=== PATIENT | female | born 1980 | race Two or more races ===

== ENCOUNTER 2020-10-18 09:40 | Emergency (ER) | payer SELFPAY ==
[~2020-10-18] VITALS: Ht 157.5 cm; Wt 63.6 kg
[2020-10-18 11:29] LABS: BILIRUBIN,URINE NEGATIVE (NEG); CLARITY,URINE CLEAR; COLOR,URINE YELLOW; NITRITE,URINE NEGATIVE (NEG); PH,URINE 5.5 (<5.0-8.0); PROTEIN,URINE NEGATIVE (NEG-TRACE); UROBILINOGEN,URINE 0.2 mg/dL (0.2 mg/dL)
[2020-10-18 11:40] LABS: BACTERIA,URINE FEW /HPF (0-FEW); RBC,URINE 0 /HPF (0-2)
[2020-10-18] MEDS ORDERED: IV NORMAL SALINE 1000ML BAG 1,000 ML IV ONE (11:45)
[2020-10-18] MEDS ORDERED: ONDANSETRON PF 4 MG/2 ML VIAL. IV ONE (11:45)
[2020-10-18 11:58] LABS: BASO % 1 % (0-3); EOS % 1 % (0-3); HEMATOCRIT 34.1 % (36.0-47.0); LYMPH # 1.6 x10^3/uL (1.0-4.8); LYMPH % 40 % (24-48); MEAN CORPUSCULAR HEMOGLOBIN 24 pg (25-35); MEAN CORPUSCULAR HGB CONC 32 g/dL (31-37); MEAN CORPUSCULAR VOLUME 74 fL (79-100); MONO # 0.4 x10^3/uL (0.0-1.1); MONO % 11 % (0-9); NEUT # 1.9 x10^3/uL (1.8-7.7); NEUT % 47 % (31-73); PLATELET COUNT 291 x10^3/uL (140-400); RED BLOOD COUNT 4.61 x10^6/uL (3.50-5.40); RED CELL DISTRIBUTION WIDTH 15.9 % (11.5-14.5); WHITE BLOOD COUNT 4.1 x10^3/uL (4.0-11.0)
[2020-10-18] MEDS ORDERED: IOHEXOL 300 MG/ML 100ML VIAL. IV ONE (12:00)
[2020-10-18 12:10] LABS: CALCIUM 8.8 mg/dL (8.5-10.1); CREATININE 0.8 mg/dL (0.6-1.0); GFR 80.3; POTASSIUM 4.3 mmol/L (3.5-5.1)
[2020-10-18] MEDS ORDERED: CONTRAST GIVEN. MC PRN (12:15)
[2020-10-18 12:16] LABS: ALBUMIN 3.7 g/dL (3.4-5.0); ALBUMIN/GLOBULIN RATIO 1.1 (1.0-1.7); MAGNESIUM 2.3 mg/dL (1.8-2.4); TOTAL BILIRUBIN 1.1 mg/dL (0.2-1.0); TOTAL PROTEIN 7.1 g/dL (6.4-8.2)
--- NOTE | 2020-10-18 12:52 | RAD ---
INDICATION: Reason: R flank pain / Spl. Instructions: IV omni 300 75 mls / History: . COMPARISON: April 2019 TECHNIQUE: Axial CT images obtained through the abdomen and pelvis with contrast.. One or more of the following individualized dose reduction techniques were utilized for this examinat ion: 1. Automated exposure control; 2. Adjustment of the mA and/or kV according to patient size; 3 . Use of iterative reconstruction technique. FINDINGS: Abdominal aorta is not aneurysmal. No intrahepatic bile duct dilation. The liver is mildly low density. Nonspecific but can be seen with fatty infiltration. No peripancreatic fluid collection. Spleen unremarkable. Postoperative changes to the stomach. No hydronephrosis. Prominent vessels in the periuterine region bilaterally. Urinary bladder is partially distended. Appendix does not appear inflamed. No dilated loops of bowel to suggest obstruction. Degenerative changes of the spine. IMPRESSION: * No evidence of bowel obstruction or appendicitis. * Liver is mildly low density. Nonspecific but can be seen with fatty infiltration. * No hydronephrosis * Prominent vessels in the adnexa left greater than right. Would correlate with symptoms to ensure t his is not pathologic in nature from causes such as pelvic congestion. Electronically signed by: Jarett Mcgregor MD (10/18/2020 12:50 PM) [id number]
[2020-10-18 13:27] VITALS: BP 112/55
--- NOTE | 2020-10-18 13:36 | ED.ADGEN ---
Past Medical History Past Medical History: Other Additional Past Medical Histor: PCOS Past Surgical History: Other Additional Past Surgical Histo: GASTRIC BYPASS Smoking Status: Never Smoker Alcohol Use: None General Adult EDM: Chief Complaint: FLANK PAIN HPI: HPI: Patient is a 40 year old female who presents emergency department with complaints of right flank pain with dysuria for the last 2 to 3 days. Patient states she has had some intermittent nausea with the symptoms but denies any vomiting, diarrhea, or fever. Patient states that the pain radiates to her right lower quadrant, she denies any chest pain, shortness of breath, cough, wheezing, lightheadedness, or dizziness. She states she has a history of chronic pelvic congestion syndrome. She denies any hematuria, increased urinary frequency, or back pain. Patient does state that her urine has had a foul odor to it. She currently rates her pain a 7 out of 10 on the pain scale, she denies any alleviating factors, the pain is worse with urination. Review of Systems: Review of Systems: Complete ROS is negative unless otherwise noted in HPI. Current Medications: Current Medications Medications (Trade) Dose Ordered Sig/Hamilton Start Time Stop Time Status Last Admin Dose Admin Info (CONTRAST GIVEN -- Rx MONITORING) 1 each PRN DAILY PRN 10/18/20 12:15 10/18/20 13:52 DC Iohexol (Omnipaque 300 Mg/ml) 75 ml 1X ONCE 10/18/20 12:00 10/18/20 12:03 DC 10/18/20 12:00 75 ML Ondansetron HCl (Zofran) 4 mg 1X ONCE 10/18/20 11:45 10/18/20 11:46 DC 10/18/20 11:57 4 MG Sodium Chloride 1,000 ml @ 1,000 mls/hr 1X ONCE 10/18/20 11:45 10/18/20 12:44 DC 10/18/20 11:57 1,000 MLS/HR Allergies: Allergies: Allergies Coded Allergies Type Severity Reaction Last Updated Verified No Known Drug Allergies 10/18/20 No Physical Exam: PE: Constitutional: Well developed, well nourished, no acute distress, non-toxic appearance. [] HENT: Normocephalic, atraumatic, bilateral external ears normal, nose normal. [] Eyes: PERRLA, EOMI, conjunctiva normal, no discharge. [] Neck: Normal range of motion, no stridor. [] Cardiovascular:Heart rate regular rhythm Lungs & Thorax: Respirations even and unlabored, no retractions, no respiratory distress Abdomen: soft, suprapubic tenderness to palpation otherwise nontender, no palpable mass, no pulsatile masses; right lower quadrant TTP, no rebound tenderness, no guarding, negative Rovsing's, negative obturator, negative psoas sign back: No bony tenderness, right CVA tenderness, no left CVA tenderness Skin: Warm, dry, no erythema, no rash. [] Extremities: No cyanosis, ROM intact, no edema. [] Neurologic: Alert and oriented X 3, no focal deficits noted. [] Psychologic: Affect normal, judgement normal, mood normal. [] Current Patient Data: Labs: Laboratory Tests Test 10/18/20 09:50 10/18/20 10:04 10/18/20 11:18 Urine Collection Type Unknown Urine Color Yellow Urine Clarity Clear Urine pH 5.5 (<5.0-8.0) Urine Specific [place] 1.025 (1.000-1.030) Urine Protein Negative mg/dL (NEG-TRACE) Urine Glucose (UA) Negative mg/dL (NEG) Urine Ketones (Stick) Negative mg/dL (NEG) Urine Blood Negative (NEG) Urine Nitrite Negative (NEG) Urine Bilirubin Negative (NEG) Urine Urobilinogen Dipstick 0.2 mg/dL (0.2 mg/dL) Urine Leukocyte Esterase Small (NEG) Urine RBC 0 /HPF (0-2) Urine WBC 5-10 /HPF (0-4) Urine Squamous Epithelial Cells Few /LPF Urine Bacteria Few /HPF (0-FEW) Urine Mucus Marked /LPF POC Urine HCG, Qualitative Hcg negative (Negative) White Blood Count 4.1 x10^3/uL (4.0-11.0) Red Blood Count 4.61 x10^6/uL (3.50-5.40) Hemoglobin 11.0 g/dL (12.0-15.5) L Hematocrit 34.1 % (36.0-47.0) L Mean Corpuscular Volume 74 fL (79-100) L Mean Corpuscular Hemoglobin 24 pg (25-35) L Mean Corpuscular Hemoglobin Concent 32 g/dL (31-37) Red Cell Distribution Width 15.9 % (11.5-14.5) H Platelet Count 291 x10^3/uL (140-400) Neutrophils (%) (Auto) 47 % (31-73) Lymphocytes (%) (Auto) 40 % (24-48) Monocytes (%) (Auto) 11 % (0-9) H Eosinophils (%) (Auto) 1 % (0-3) Basophils (%) (Auto) 1 % (0-3) Neutrophils # (Auto) 1.9 x10^3/uL (1.8-7.7) Lymphocytes # (Auto) 1.6 x10^3/uL (1.0-4.8) Monocytes # (Auto) 0.4 x10^3/uL (0.0-1.1) Eosinophils # (Auto) 0.0 x10^3/uL (0.0-0.7) Basophils # (Auto) 0.0 x10^3/uL (0.0-0.2) Sodium Level 144 mmol/L (136-145) Potassium Level 4.3 mmol/L (3.5-5.1) Chloride Level 108 mmol/L (98-107) H Carbon Dioxide Level 26 mmol/L (21-32) Anion Gap 10 (6-14) Blood Urea Nitrogen 8 mg/dL (7-20) Creatinine 0.8 mg/dL (0.6-1.0) Estimated GFR (Cockcroft-Gault) 80.3 BUN/Creatinine Ratio 10 (6-20) Glucose Level 79 mg/dL (70-99) Calcium Level 8.8 mg/dL (8.5-10.1) Magnesium Level 2.3 mg/dL (1.8-2.4) Total Bilirubin 1.1 mg/dL (0.2-1.0) H Aspartate Amino Transferase (AST) 78 U/L (15-37) H Alanine Aminotransferase (ALT) 135 U/L (14-59) H Alkaline Phosphatase 103 U/L (46-116) Total Protein 7.1 g/dL (6.4-8.2) Albumin 3.7 g/dL (3.4-5.0) Albumin/Globulin Ratio 1.1 (1.0-1.7) Lipase 197 U/L (73-393) Laboratory Tests 10/18/20 11:18 Laboratory Tests 10/18/20 11:18 Vital Signs: Vital Signs Date Time Temp Pulse Resp B/P (MAP) Pulse Ox O2 Delivery O2 Flow Rate FiO2 10/18/20 13:27 82 112/55 (74) 94 Room Air 10/18/20 11:58 20 10/18/20 09:50 97.9 97.9 EKG: EK-this rhythm, rate 59, no STEMI, read by Dr. Lunsford [] Heart Score: C/O Chest Pain: No Risk Scores: Score 0 - 3: 2.5% MACE over next 6 weeks - Discharge Home Score 4 - 6: 20.3% MACE over next 6 weeks - Admit for Clinical Observation Score 7 - 10: 72.7% MACE over next 6 weeks - Early Invasive Strategies Radiology/Procedures: Radiology/Procedures: PROCEDURE: CT ABD PELV W/ IV CONTRST ONLY INDICATION: Reason: R flank pain / Spl. Instructions: IV omni 300 75 mls / History: . COMPARISON: April 2019 TECHNIQUE: Axial CT images obtained through the abdomen and pelvis with contrast.. One or more of the following individualized dose reduction techniques were utilized for this examination: 1. Automated exposure control; 2. Adjustment of the mA and/or kV according to patient size; 3. Use of iterative reconstruction technique. FINDINGS: Abdominal aorta is not aneurysmal. No intrahepatic bile duct dilation. The liver is mildly low density. Nonspecific but can be seen with fatty infiltr ation. No peripancreatic fluid collection. Spleen unremarkable. Postoperative changes to the stomach. No hydronephrosis. Prominent vessels in the periuterine region bilaterally. Urinary bladder is partially distended. Appendix does not appear inflamed. No dilated loops of bowel to suggest obstruction. Degenerative changes of the spine. IMPRESSION: * No evidence of bowel obstruction or appendicitis. * Liver is mildly low density. Nonspecific but can be seen with fatty infiltration. * No hydronephrosis * Prominent vessels in the adnexa left greater than right. Would correlate with symptoms to ensure this is not pathologic in nature from causes such as pelvic congestion. Electronically signed by: Jarett Mcgregor MD (10/18/2020 12:50 PM) DESKTOP- [id number][] Course & Med Decision Making: Course & Med Decision Making Pertinent Labs and Imaging studies reviewed. (See chart for details) 40-year-old female presents emergency department complaints of right flank pain and dysuria for the last 2 to 3 days. CBC i reveals mild anemia with hemoglobin 11, hematocrit of 34.1; CMP revealed mildly elevated AST and ALT, total bilirubin 1.1, otherwise unremarkable; patient's urinalysis reveals 5-10 white blood cells and few bacteria, will treat for UTI as patient is symptomatic. Patient's vital signs are stable throughout emergency department stay, no acute findings on CT abdomen pelvis. Prescription written for ciprofloxacin 500 p.o. twice daily x7 days and Pyridium as needed. Patient encouraged to increase clear fluids, avoid bladder irritants. Follow-up with primary care doctor in 1 to 2 days, return to the ER if symptoms worsen or fever develops. Patient verbalized an understanding of home care, medications, follow-up, and return to ED instructions and was in agreement with the plan of care. [] Dragon Disclaimer: Dragon Disclaimer: This electronic medical record was generated, in whole or in part, using a voice recognition dictation system. Departure Departure Impression: Primary Impression: Urinary tract infection Additional Impression: Dysuria Disposition: 01 HOME / SELF CARE / HOMELESS Condition: STABLE Referrals: NO PCP (PCP) Patient Instructions: Dysuria-Brief, Urinary Tract Infection, [id number] Additional Instructions: Fill prescription(s) and take as directed. Avoid bladder irritants such as caffeine, carbonation, and spicy foods. Increase clear fluids. Follow up with your primary care doctor in 1-2 days, return to the ER if symptoms worsen or fever develops. Scripts Phenazopyridine Hcl (PYRIDIUM) 200 Mg Tablet 1 TAB PO TID for urinary discomfort for 3 Days, #9 TAB 0 Refills Prov: FAMILIA HERRERA APRN 10/18/20 Ciprofloxacin Hcl (CIPRO) 500 Mg Tablet 1 TAB PO BID for 7 Days, #14 TAB 0 Refills Prov: FAMILIA HERRERA APRN 10/18/20 Problem Qualifiers Primary Impression: Urinary tract infection Urinary tract infection type: site unspecified Hematuria presence: without hematuria Qualified Codes: N39.0 - Urinary tract infection, site not specified FAMILIA HERRERA APRN October 18, 2020 13:36
[2020-10-18] MEDS ORDERED: PHEN-318 PO (13:43)
[2020-10-18] MEDS ORDERED: CIPR500T94 PO (13:43)
--- NOTE | 2020-10-18 17:36 | EKG ---
[facility] [address] [place] [id number] Test Date: 2020-10-18 Test Time: 11:56:09 Pat Name: BEVERLY MITCHELL Department: Room: Gender: F [employer]: : [id number] Requested By: FAMILIA HERRERA Order Number: [id number] Reading MD: Measurements Intervals [place] Rate: 59 P: 0 AL: 120 QRS: 15 QRSD: 80 T: 28 QT: 380 QTc: 380 Interpretive Statements SINUS RHYTHM S1,S2,S3 PATTERN NO SPECIFIC ECG ABNORMALITIES RI6.01 No previous ECG available for comparison
== END 2020-10-18 13:52 | disposition home or self-care (01) ==
LOC: ER 09:40
DX: N39.0 Urinary tract infection, site not specified (principal)
CPT/HCPCS: 36415; 74177; 80053; 81001; 81025; 83690; 83735; 85025; 87086; 93005; 96361; 96374; 99285; J2405; J7030; Q9967